=== PATIENT | female | born 1965 ===

== ENCOUNTER → 2016-10-19 | Outpatient (CLI) | payer OTHER ==
[~2016-10-19] VITALS: Ht 165.1 cm; Wt 95.3 kg
[~2016-10-19] MED LIST: AMLODIPINE BESYL5 MG ORAL; Bacitracin 50000 Units Vial ONE; Bupivacaine w/Epi 0.5% 30ml Vial INJ ONE; CATAPRES0.1 MG ORAL; Dexamethasone 20mg/5ml IVP ONE; GABAPENTIN300 MG ORAL; Lidocaine 1% Plain 30 ml INJ ONE; Morphine Sulfate 4mg/ml Inj IM PRN; Norco 10mg/325mg tab ORAL PRN; Surgicel 4in x 8in TOPIC ONE; TRAMADOL HCL50 MG ORAL; Thrombin 5000 units TOPIC ONE; Vancomycin 1gm inj IVPB ONE; ZOLPIDEM TARTRAT5 MG ORAL; Zolpidem 5mg tab ORAL PRN; ceFAZolin sod 1 GM in NS 55 ML IVPB ONE; oxyCODONE 5mg IR tab ORAL PRN; traMADol 50mg tab ORAL PRN
[2016-10-19 06:26] VITALS: BP 160/85
--- NOTE | 2016-10-19 06:34 | Anethesia Preoperative Eval ---
Anesthesia Pre-op PMH/ROS General Date of Evaluation: Oct 19, 2016 Anesthesiologist: Tiburcio ASA Score: ASA 2 Mallampati Score Class I : Soft palate, uvula, fauces, pillars visible Class II: Soft palate, uvula, fauces visible Class III: Soft palate, base of uvula visible Class IV: Only hard plate visible Mallampati Classification: Class III Surgeon: Tiburcio Family History: no anesthesia problems Allergies: Coded Allergies: No Known Allergies (Unverified , 10/18/16) Medications: see eMAR Past Medical History Cardiovascular: Reports: HTN Other: obesity - BMI 35 Anesthesia Pre-op Phys. Exam Physician Exam Last Vital Signs Date Time Temp Pulse Resp B/P Pulse Ox O2 Delivery O2 Flow Rate FiO2 10/19/16 06:26 97.7 67 20 160/85 97 Room Air Anesthesia Pre-op A/P Labs Urine Test Test 10/19/16 05:30 Urine HCG, Qualitative Negative Jorje Henry MD Oct 19, 2016 06:34
--- NOTE | 2016-10-19 08:38 | Consultation ---
DATE OF CONSULTATION: 10/19/2016 CONSULTING PHYSICIAN: Justin Delatorre M.D. REFERRING PHYSICIAN: Heri Dey M.D. REASON FOR CONSULTATION: Acute pain consult. HISTORY OF PRESENT ILLNESS: Dear Dr. Heri Dey, Thank you kindly for consulting me to evaluate and render an opinion as to how to proceed in the management of the patient's acute postoperative cervical spine pain after cervical spine fusion surgery with instrumentation. The patient is a morbidly obese 51-year-old woman, who injured her neck after an air-vent fell on her at a salon. The patient required cervical spine fusion surgery today and complained of significant postoperative discomfort. You consulted me for acute pain consultation. I saw the patient at bedside with her daughter, who interpreted Persian. I have discussed the case with the intraoperative anesthesiologist, Dr. Henry along with the medical and surgical team to optimize the patient's postoperative pain control. PAST MEDICAL HISTORY: 1. Acute postoperative cervical spine pain status post cervical spine fusion surgery with instrumentation by Dr. Heri Dey in September 2016. 2. Personal injury. 3. Obesity. 4. Hypertension. 5. Active tobacco usage. PAST SURGICAL HISTORY: section. MEDICATIONS: Medications at home tramadol, Neurontin 300 mg b.i.d., antihypertensive medications, Norvasc and clonidine, and Ambien 5 mg at bedtime. ALLERGIES: No known drug allergies. SOCIAL HISTORY: The patient actively smokes tobacco. I counseled the patient to stop smoking. The patient has several children at the bedside providing good social support and interpreting. The patient denies alcohol or marijuana usage. FAMILY HISTORY: Obesity, hypertension, and diabetes. REVIEW OF SYSTEMS: Per Dr. Howard. PHYSICAL EXAMINATION: GENERAL: Age 51, height 5 feet 3 inches, and weight 97 kilograms. VITAL SIGNS: In the medical record. HEENT: Head shows normocephalic and atraumatic. Pupils are equal, round, and reactive to light and accommodative. Extraocular muscles intact. NECK: Pain with range of motion of the neck. Detailed neurologic exam and neck exam per Dr. Dey. CHEST: Obese. Barrel chested. No wheezes, rales, rhonchi, or accessory muscle use noted. HEART: Regular rate and rhythm. Positive S4. Normal S1 and S2. No S3 appreciated. ABDOMEN: Obese. Positive bowel sounds. BREASTS AND GENITOURINARY: Deferred. DIAGNOSTIC TESTING: CT cervical spine dated 06/12/2016 shows C4-C5 with a 3 mm AP disk bulging with probable spinal canal stenosis. Echocardiogram on 06/25/2016, normal left ventricular function and ejection fraction 65%. A 12-lead EKG, normal sinus rhythm, nonspecific lateral ST changes on 09/27/2016, and ventricular rate 82. Preoperative chest x-ray showed no acute cardiopulmonary disease on 10/05/2016. LABORATORY STUDIES: On 10/02/2016, glucose 117, BUN 6, creatinine 0.5, sodium 142, potassium 3.7, chloride 102, bicarb 32, and calcium 9.4. Hemoglobin A1c 8.1. PTT 28. INR 1.0. Urinalysis is negative. White count 8, hematocrit 37, and platelets 200,000. IMPRESSION: 1. Acute postoperative cervical spine pain status post cervical spine fusion surgery with instrumentation by Dr. Heri Dey in September 2016. 2. Personal injury. 3. Obesity. 4. Hypertension. 5. Active tobacco usage. TREATMENT RECOMMENDATIONS: After a detailed examination of the patient and review of the medical record, I have devised the following analgesic plan to help her postoperatively. I have ordered Cepacol lozenges for topical sore throat complaints except for tiered regimen of analgesics starting with tramadol 50 mg orally every 8 hours p.r.n. for mild pain. I have then added Royal 10/325 one tablet orally every three hours p.r.n. for moderate pain and I have made available oxycodone instant release 5 mg orally every three hours as needed for severe pain. I have also added a breakthrough dose of morphine 4 mg intramuscularly every three hours as needed for 10/10 pain. I have added Soma 350 mg orally every eight hours as needed for muscle spasms. I did provide a prescription for 50 tablets of Royal for outpatient usage. The patient is a poor historian and cannot recall the names of medications, which have worked for her in the past. She did bring with her to the hospital bottle of tramadol and gabapentin. She does state that she does take the has gabapentin 300 mg once or twice per day. I will restart gabapentin 300 mg b.i.d. here in the hospital. The patient does have insomnia symptoms at-times. I have ordered Ambien 5 mg q.8 hours p.r.n. I will empirically place the patient on Protonix 40 mg nightly for GI ulcer prophylaxis on the p.r.n. dose with Mylanta 30 mL q.6 hours p.r.n. for any GERD symptom exacerbation. I have added Benadryl 20 mg orally to help with itching along with an antiemetic dose of Zofran 4 mg intravenously every four hours as needed for nausea and vomiting. I have added a p.r.n. rescue laxative Dulcolax suppository q.12 hours 10 mg p.r.n. With the patient's obesity, I have encouraged incentive spirometer be ordered to encourage good pulmonary toilet. The patient does smoke tobacco. She may benefit from nicotine patch if okayed by the surgeon, Dr. Dey. I will defer DVT prophylaxis to the surgical team. A comprehensive review of the medical record was performed. Records reviewed from multiple reports from today's date of surgery at [facility] including records from the surgery suite, Dr. Dey and surgical team, and intraoperative anesthesiologist, Dr. Henry. Also records were reviewed from the nursing and pharmacy team; along with multiple records from the preoperative, Dr. Howard with diagnostic testing. Justin Delatorre M.D. DR: DARIANA JOB#: [id number] CC:
== END | disposition home or self-care (01) ==
LOC: UNDOADMIN 05:14 → SDSOVERFLO 05:14 → LAB 10:00 → EDSTATUS 10:30
DX: Z01.812 Encounter for preprocedural laboratory examination (principal); M54.12 Radiculopathy, cervical region; I10 Essential (primary) hypertension; E66.9 Obesity, unspecified; I51.7 Cardiomegaly; K29.70 Gastritis, unspecified, without bleeding; Z72.0 Tobacco use; Z83.3 Family history of diabetes mellitus; Z82.49 Family history of ischemic heart disease and other diseases of the circulatory system; Z53.09 Procedure and treatment not carried out because of other contraindication
CPT/HCPCS: 36415; 81025; 82947; 82962; 86850; 86900; 86901; 87081; G0463; 99211

== ENCOUNTER 2017-02-27 08:20 | Inpatient (IN) | payer OTHER ==
[~2017-02-27] VITALS: Ht 160 cm; Wt 94.3 kg
[2017-02-27] VITALS (15 sets, daily range): BP systolic 148–177; BP diastolic 76–99
[2017-02-27] MEDS: Dexamethasone Inj PF*Surgery use* 10 MG/ML VIAL IV ONE (07:00)
[~2017-02-27 08:20] MED LIST changes: +Bupivacaine 0.5% Inj 30 ml vial INJ ONE; -Bupivacaine w/Epi 0.5% 30ml Vial INJ ONE; -Dexamethasone 20mg/5ml IVP ONE; -Morphine Sulfate 4mg/ml Inj IM PRN; -Norco 10mg/325mg tab ORAL PRN; -Zolpidem 5mg tab ORAL PRN; +ceFAZolin 1gm/50ml Premix 50 ML IV ONE; -ceFAZolin sod 1 GM in NS 55 ML IVPB ONE; -oxyCODONE 5mg IR tab ORAL PRN; -traMADol 50mg tab ORAL PRN
[2017-02-27] MEDS ORDERED: LR 1000ml 1,000 ML IVLG SCH (09:34)
[2017-02-27] MEDS ORDERED: DiphenhydrAMINE 50mg/ml Inj IVP PRN (09:45)
[2017-02-27] MEDS ORDERED: Norco 5mg/325mg tab ORAL PRN (09:45)
[2017-02-27] MEDS ORDERED: fentaNYL 100 mcg/2 mL IV PRN (09:45)
[2017-02-27] MEDS ORDERED: oxyCODONE HCL/Acetaminophen 5/325mg ORAL PRN (09:45)
[2017-02-27] MEDS ORDERED: Metoclopramide 10mg/2ml Inj IVP PRN ×2 (09:45→13:00)
[2017-02-27] MEDS ORDERED: LORazepam Inj 2mg/ml 1ml IV PRN (09:45)
[2017-02-27] MEDS ORDERED: Ketorolac 30mg Inj IV PRN (09:45)
[2017-02-27] MEDS ORDERED: Midazolam 2mg/2ml Inj IVP PRN (09:45)
[2017-02-27] MEDS ORDERED: Atropine Inj 1mg/10ml Syr IV PRN (09:45)
[2017-02-27] MEDS ORDERED: Ketorolac 60mg Inj IV PRN (09:45)
[2017-02-27] MEDS ORDERED: Meperidine 25mg/0.5ml Inj (FOR RIGORS ONLY) IV PRN (09:45)
[2017-02-27] MEDS ORDERED: Norco 7.5mg/325mg tab ORAL PRN (09:45)
[2017-02-27 10:08] LABS: BASOPHILS % (AUTO) 1.1 % (0.0-2.0); EOSINOPHILS % (AUTO) 3.6 % (0.0-3.0); LYMPHOCYTES % (AUTO) 37.4 % (20.0-45.0); MEAN CORPUSCULAR HEMOGLOBIN 26.8 PG (27.0-31.0); MEAN CORPUSCULAR VOLUME 86 FL (80-99); MEAN PLATELET VOLUME 5.7 FL (6.5-10.1); MONOCYTES % (AUTO) 7.1 % (1.0-10.0); NEUTROPHILS % (AUTO) 50.9 % (45.0-75.0); PLATELET COUNT 258 K/UL (150-450); RED BLOOD COUNT 4.95 M/UL (4.20-5.40); RED CELL DISTRIBUTION WIDTH 15.1 % (11.6-14.8); WHITE BLOOD COUNT 9.2 K/UL (4.8-10.8)
[2017-02-27 10:25] LABS: ANION GAP 14 (5-15); CALCIUM 9.3 mg/dL (8.6-10.2); CARBON DIOXIDE 27 mEQ/L (20-30); CHLORIDE 100 mEQ/L (98-107); CREATININE 0.5 mg/dL (0.5-0.9); GLOMERULAR FILTRATION RATE > 60 mL/min (>60); HEMOLYSIS 48; POTASSIUM 3.3 mEQ/L (3.4-4.9); SODIUM 141 mEQ/L (135-145)
[2017-02-27] MEDS ORDERED: LR 1000ml ONE (10:30)
[2017-02-27] MEDS ORDERED: fentaNYL 100 mcg/2 mL IV ONE (10:30)
[2017-02-27] MEDS ORDERED: NS Irrig 1000ml ONE (10:30)
[2017-02-27] MEDS ORDERED: Zemuron 50mg/5ml Inj IV ONE (10:30)
[2017-02-27] MEDS ORDERED: Glycopyrrolate 0.2mg/ml 1ml Vial ONE (10:30)
[2017-02-27] MEDS ORDERED: Propofol 10mg/ml 100ml btl IV ONE (10:30)
[2017-02-27] MEDS ORDERED: Neostigmine 1mg/ml 10ml Inj ONE (10:30)
[2017-02-27] MEDS ORDERED: Sterile Water Irrig 1000ml IRRIG ONE (10:30)
[2017-02-27] MEDS ORDERED: fentaNYL 250mcg/5ml ONE (10:30)
[2017-02-27] MEDS ORDERED: Lidocaine 1% MPF 10mg/ml 5ml ONE (10:30)
[2017-02-27] MEDS ORDERED: Acetaminophen (Non formulary) 1,000 MG/100 ML ML IV ONE (10:30)
[2017-02-27 10:39] LABS: PROTHROMBIN TIME 10.6 SEC (9.30-11.50)
--- NOTE | 2017-02-27 11:18 | Anethesia Preoperative Eval ---
Anesthesia Pre-op PMH/ROS General Date of Evaluation: Feb 27, 2017 Time of Evaluation: 10:34 Anesthesiologist: Elaine ASA Score: ASA 3 Mallampati Score Class I : Soft palate, uvula, fauces, pillars visible Class II: Soft palate, uvula, fauces visible Class III: Soft palate, base of uvula visible Class IV: Only hard plate visible Mallampati Classification: Class III Surgeon: Tiburcio Diagnosis: Neck Pain Surgical Procedure: ACDF C6-7 Anesthesia History: none Family History: no anesthesia problems Allergies: Coded Allergies: No Known Allergies (Unverified , 10/18/16) Medications: see eMAR Past Medical History Cardiovascular: Reports: HTN Endocrine: Reports: DM - FBS 99 Other: obesity Anesthesia Pre-op Phys. Exam Physician Exam Last Vital Signs Date Time Temp Pulse Resp B/P Pulse Ox O2 Delivery O2 Flow Rate FiO2 02/27/17 09:20 155/76 02/27/17 09:10 98.5 66 18 94 Room Air Constitutional: NAD Neurologic: CN 2-12 intact Cardiovascular: RRR Respiratory: CTA Gastrointestinal: S/NT/ND Airway Exam Mallampati Score: Class III MO: full ROM: limited Teeth: intact Anesthesia Pre-op A/P Labs Hematology Test 02/27/17 09:50 White Blood Count 9.2 K/UL (4.8-10.8) Red Blood Count 4.95 M/UL (4.20-5.40) Hemoglobin 13.3 G/DL (12.0-16.0) Hematocrit 42.7 % (37.0-47.0) Mean Corpuscular Volume 86 FL (80-99) Mean Corpuscular Hemoglobin 26.8 PG (27.0-31.0) L Mean Corpuscular Hemoglobin Concent 31.0 G/DL (32.0-36.0) L Red Cell Distribution Width 15.1 % (11.6-14.8) H Platelet Count 258 K/UL (150-450) Mean Platelet Volume 5.7 FL (6.5-10.1) L Neutrophils (%) (Auto) 50.9 % (45.0-75.0) Lymphocytes (%) (Auto) 37.4 % (20.0-45.0) Monocytes (%) (Auto) 7.1 % (1.0-10.0) Eosinophils (%) (Auto) 3.6 % (0.0-3.0) H Basophils (%) (Auto) 1.1 % (0.0-2.0) Coagulation Test 02/27/17 10:25 Prothrombin Time 10.6 SEC (9.30-11.50) Prothromb Time International Ratio 1.0 (0.9-1.1) Activated Partial Thromboplast Time 30 SEC (23-33) Chemistry Test 02/27/17 09:50 Sodium Level 141 mEQ/L (135-145) Potassium Level 3.3 mEQ/L (3.4-4.9) L Chloride Level 100 mEQ/L (98-107) Carbon Dioxide Level 27 mEQ/L (20-30) Anion Gap 14 (5-15) Blood Urea Nitrogen 7 mg/dL (7-23) Creatinine 0.5 mg/dL (0.5-0.9) Estimat Glomerular Filtration Rate > 60 mL/min (>60) Glucose Level 106 mg/dL (74-106) Calcium Level 9.3 mg/dL (8.6-10.2) Urine Test Test 02/27/17 08:40 Urine HCG, Qualitative Negative Risk Assessment & Plan Assessment: ASA 3 Plan: GA, BIS, Glidescope Status Change Before Surgery: No Pre-Antibiotics Dru Grams Ancef IV Given Within 1 Hr of Incision: Yes Time Given: 10:52 Jorje Henry MD Feb 27, 2017 11:18
--- NOTE | 2017-02-27 11:53 | Immediate Post-Op Evaluation ---
Immediate Post-Op Evalulation Immediate Post-Op Evalulation Procedure: ACDF C6-7 Date of Evaluation: Feb 27, 2017 Time of Evaluation: 13:39 IV Fluids: 900 LR Blood Products: 0 Estimated Blood Loss: 50 Urinary Output: 0 Blood Pressure Systolic: 181 Blood Pressure Diastolic: 91 Pulse Rate: 69 Respiratory Rate: 16 O2 Sat by Pulse Oximetry: 100 Temperature (Fahrenheit): 98 Pain Score (1-10): 3 Nausea: No Vomiting: No Complications 0 Patient Status: awake, reacts, patent, extubated, none Hydration Status: adequate Dru Grams Ancef IV Given Within 1 Hr of Incision: Yes Time Given: 10:52 Jorje Henry MD Feb 27, 2017 11:53
--- NOTE | 2017-02-27 11:54 | 48 Hour Post Anesthesia Eval ---
Post Anesthesia Evaluation Procedure: ACDF C6-7 Date of Evaluation: Feb 27, 2017 Time of Evaluation: 15:43 Blood Pressure Systolic: 178 0: 89 Pulse Rate: 67 Respiratory Rate: 18 Temperature (Fahrenheit): 98.4 O2 Sat by Pulse Oximetry: 96 Airway: patent Nausea: No Vomiting: No Pain Intensity: 3 Hydration Status: adequate Cardiopulmonary Status: Stable Mental Status/LOC: patient returned to baseline Follow-up Care/Observations: 0 Post-Anesthesia Complications: 0 Follow-up care needed: N/A Jorje Henry MD Feb 27, 2017 11:54
--- NOTE | 2017-02-27 12:57 | Pre-Procedure Note/Attestation ---
Pre-Procedure Note/Attestation Complete Prior to Procedure Planned Procedure: not applicable Procedure Narrative: Hemivertebrectomy C6, C7 Interbody reconstruction / fusion C6-C7 Anterior plate fixation C6, C7 Body Habitus Xray SSEP Microscope Attestation I attest that I discussed the nature of the procedure; its benefits; risks and complications; and alternatives (and the risks and benefits of such alternatives ), prior to the procedure, with the patient (or the patient's legal textile machinery sales representative). I attest that, if there was a reasonable possibility of needing a blood transfusion, the patient (or the patient's legal textile machinery sales representative) was given the [facility] standardized written summary, pursuant to the Sarwat Ruthy Blood Safety Act ([place] Health and Safety Code # 1645, as amended). I attest that I re-evaluated the patient just prior to the surgery and that there has been no change in the patient's H&P, except as documented below: MICHELLE JOSEPH Feb 27, 2017 12:57
[2017-02-27] MEDS ORDERED: HYDROmorphone 1mg/ml Carpuject SUBQ PRN (13:00)
[2017-02-27] MEDS ORDERED: D5 1/2NS 1,000 ML IV SCH (13:00)
--- NOTE | 2017-02-27 13:00 | Brief Operative Note ---
Immediate Post Operative Note Operative Note Pre-op Diagnosis: Post trauma HNP Procedure: Hemivertebrectomy C6 Hemivertebrectomy C7 SSEP Microscope C6-7 Interbody Device Fusion C6-C7 Plate Anterior C6-C7 Xray Post-op Diagnosis: same as pre-op Findings: consistent w/pre-op dx studies Surgeon: Tiburcio Engineer Systems: Juan Carlos Anesthesiologist: Elaine Anesthesia: general Specimen: none Complications: none Condition: stable Estimated Blood Loss: minimal Implant(s) used?: Yes MICHELLE JOSEPH Feb 27, 2017 13:00
[2017-02-27] MEDS: Hydromorphone 0.5mg/0.5ml inj IVP PRN ×2 (13:49→14:07)
[2017-02-27] MEDS ORDERED: Norco 10mg/325mg tab ORAL PRN (16:00)
[2017-02-27] MEDS ORDERED: Chloraseptic Spray 20mL Bottle ORAL PRN (16:15)
[2017-02-27] MEDS ORDERED: Morphine Sulfate 4mg/ml Inj IM PRN (16:15)
[2017-02-27] MEDS ORDERED: Zolpidem 5mg tab ORAL PRN (16:15)
--- NOTE | 2017-02-27 16:20 | Diagnostic Imaging Report ---
Indication: PAIN, intraoperative Technique: Intraoperative images Comparison: None Findings: Intraoperative images document localizer tool at the level of C6-7 disc. Subsequent images document anterior fusion with placement of a disc spacer at what appears to be the same level. Impression: Intraoperative imaging, as described
[2017-02-27] MEDS ORDERED: Norco 10mg/325mg tab ORAL ONE (16:30)
[2017-02-27] MEDS ORDERED: Chloraseptic Spray 20mL Bottle ORAL ONE (17:00)
[2017-02-27] MEDS ORDERED: ceFAZolin sod 1 GM in D5W 55 ML IV SCH (18:00)
[2017-02-27] MEDS ORDERED: Docusate 100mg/10ml Liq NG SCH (18:00)
[2017-02-27] MEDS ORDERED: metFORMIN 500mg tab ORAL SCH (18:00)
--- NOTE | 2017-02-27 18:26 | Cardiology Progress Note ---
Assessment/Plan Assessment/Plan [id number] Objective Last 24 Hour Vital Signs Date Time Temp Pulse Resp B/P Pulse Ox O2 Delivery O2 Flow Rate FiO2 02/27/17 18:00 97.0 69 19 150/83 97 Room Air 02/27/17 17:24 155/76 02/27/17 17:15 97.9 68 19 155/76 97 Room Air 02/27/17 16:15 96.8 68 19 154/84 95 Room Air 02/27/17 15:10 97.9 71 14 148/76 100 Nasal Cannula 3.0 02/27/17 14:55 65 16 154/82 100 Nasal Cannula 3.0 02/27/17 14:40 64 18 159/82 100 Nasal Cannula 3.0 02/27/17 14:37 97.7 02/27/17 14:37 97.7 02/27/17 14:25 65 16 172/88 100 Nasal Cannula 3.0 02/27/17 14:20 160/90 02/27/17 14:15 62 17 167/86 99 Nasal Cannula 3.0 02/27/17 14:10 97.7 02/27/17 14:03 61 16 166/86 99 Nasal Cannula 3.0 02/27/17 13:48 62 14 164/85 99 Nasal Cannula 3.0 02/27/17 13:38 63 13 171/92 100 Simple Mask 6.0 02/27/17 13:33 63 18 175/95 100 Simple Mask 6.0 02/27/17 13:28 97.7 70 32 177/99 100 Simple Mask 6.0 02/27/17 13:28 67 18 96 02/27/17 13:27 69 16 100 02/27/17 09:20 155/76 02/27/17 09:10 98.5 66 18 158/91 94 Room Air Laboratory Tests Test 02/27/17 08:40 02/27/17 09:50 02/27/17 10:25 Urine HCG, Qualitative Negative White Blood Count 9.2 K/UL (4.8-10.8) Red Blood Count 4.95 M/UL (4.20-5.40) Hemoglobin 13.3 G/DL (12.0-16.0) Hematocrit 42.7 % (37.0-47.0) Mean Corpuscular Volume 86 FL (80-99) Mean Corpuscular Hemoglobin 26.8 PG (27.0-31.0) L Mean Corpuscular Hemoglobin Concent 31.0 G/DL (32.0-36.0) L Red Cell Distribution Width 15.1 % (11.6-14.8) H Platelet Count 258 K/UL (150-450) Mean Platelet Volume 5.7 FL (6.5-10.1) L Neutrophils (%) (Auto) 50.9 % (45.0-75.0) Lymphocytes (%) (Auto) 37.4 % (20.0-45.0) Monocytes (%) (Auto) 7.1 % (1.0-10.0) Eosinophils (%) (Auto) 3.6 % (0.0-3.0) H Basophils (%) (Auto) 1.1 % (0.0-2.0) Sodium Level 141 mEQ/L (135-145) Potassium Level 3.3 mEQ/L (3.4-4.9) L Chloride Level 100 mEQ/L (98-107) Carbon Dioxide Level 27 mEQ/L (20-30) Anion Gap 14 (5-15) Blood Urea Nitrogen 7 mg/dL (7-23) Creatinine 0.5 mg/dL (0.5-0.9) Estimat Glomerular Filtration Rate > 60 mL/min (>60) Glucose Level 106 mg/dL (74-106) Calcium Level 9.3 mg/dL (8.6-10.2) Prothrombin Time 10.6 SEC (9.30-11.50) Prothromb Time International Ratio 1.0 (0.9-1.1) Activated Partial Thromboplast Time 30 SEC (23-33) OLEG WHARTON Feb 27, 2017 18:26
[2017-02-27] MEDS ORDERED: NORCO 10-325 T1 EACH ORAL (18:44)
--- NOTE | 2017-02-27 18:45 | Operative Note - Dictated ---
DATE OF OPERATION: 02/27/2017 SURGEON: Heri Dey M.D. ADMITTING/PREOPERATIVE DIAGNOSIS: Posttraumatic cervical herniated nucleus pulposus/radiculopathy. POSTOPERATIVE DIAGNOSIS: Posttraumatic cervical herniated nucleus pulposus/radiculopathy. OPERATIVE PROCEDURE: The patient's body habitus greater than ninety-fifth percent for her height. Reynaldo vertebrectomy inferior C6 and superior C7. Interbody reconstruction fusion PEEK graft with osteopromotive material. Lordotic with correction deformity. Anterior internal plate fixation, C6-C7. SSEP monitoring high-power microscopic dissection. Intraoperative fluoroscopy interpreted by Surgeon. BAIL BONDING AGENT: SALAS Medrano. ANESTHESIA: General with intubation with Dr. Henry. ESTIMATED BLOOD LOSS: Minimal. COMPLICATIONS: None. POSTOPERATIVE CONDITION: Good/stable. INTRAOPERATIVE OBSERVATION: Decreased bone density. PROCEDURE: The patient was brought to the operating room and in the supine position general anesthesia with intubation was induced. IV antibiotics were administered 30 minutes prior to incision time. Cross-table image was obtained with markers in place demonstrating correct level for incision placement. Incision was marked with sterile pen. Left lateral overlying the C6-C7 interval. Anterior cervical spine was sterilely prepped and draped free in usual sterile fashion. Utilizing a longitudinal incision, left at the appropriate intervals sharp dissection was carried through dermis and epidermis. Due the patient's body habitus, increased size of incision was necessary for access. Electrocautery dissection was carried through subcutaneous tissue to the level of the platysmas muscle was identified, isolated and transected in line with the incision. Dissection was carried medial to the sternocleidomastoid muscle, carotid sheath through the deep cervical and pretracheal fascia to the midline between the right and left longus colli muscles. Subperiosteal elevation was undertaken of the longus coli muscles. Large anterior osteophyte at C6-C7 noted. Retractors were placed. Spinal needle was placed into the disc space at presumed C6-C7 with needle bent at 90 degrees, so as to avoid penetration greater than 3 millimeters in the disc space. Cross-table image was obtained under sterile conditions demonstrating the correct level for further dissection. Level was marked. Needle removed. Anterior osteophyte was resected with [place] bur dissection under high-power magnification. Cephalad, caudad, vertebral body pins were placed with distraction. Reynaldo vertebrectomy of inferior C6 and superior C7 to the posterior longitudinal ligament decompression. No dural tears or leaks noted anytime during the procedure. SSEP monitoring stable. Interpositional grafting with a lordotic PEEK graft containing osteopromotive material, so was implanted under high-power magnification, SSEP monitoring. Correction to lordosis. Traction pins removed. Bone cauterized by application of sterile wax. All head traction removed (10 pounds). Anterior internal plate fixation compressive fashion was undertaken. Retrieval screw utilization with poor bone density cephalad left screw. Screw purchase interpositional grafting of the appropriate sized lordotic PEEK cage containing osteopromotive material placed under high-power magnification. SSEP monitoring stable. Pins removed. Bone cauterized by application of sterile wax. Anterior internal fixation undertaken C6-C7 with plate/screws. Decrease in bone density noted. Wound copiously irrigated with antibiotic-containing saline. FloSeal applied. A 0.5 g vancomycin powder applied. Reapproximation of the platysmas muscle. Reapproximation of dermis and epidermis. Surgical strips applied followed with sterile bandage maintained in place with tape. The patient awakened, extubated in the operating room and transported to postoperative recovery in good stable condition. Heri Dey M.D. DR: GENTRY JOB#: [id number] CC:
[2017-02-27] MEDS ORDERED: Tubing IV Secondary IV ONE (19:04)
[2017-02-27] MEDS ORDERED: 1/2 NS 1000ml IV ONE (19:04)
--- NOTE | 2017-02-28 01:01 | Consultation ---
DATE OF CONSULTATION: 02/27/2017 CARDIOLOGY CONSULTATION CONSULTING PHYSICIAN: Venkat Howard M.D. REFERRING PHYSICIAN: Heri Dey M.D. REASON FOR REFERRAL: Postoperative diabetic and medical care. HISTORY OF PRESENT ILLNESS: This is a 51-year-old female with history of multiple medical problems as delineated below. The patient has had history of high blood pressure and very noncompliance with medication. Over the course of the past few weeks, I have started her on some medications and gradually, I have increased the medication to control both her blood pressure and heart rate. She has done well. Eventually, however, the blood pressure was not optimally controlled and recommendation was given for the patient to have blood pressure checked at home and the result of her blood pressure readings unfortunately had never occurred. Nevertheless, she has done well. She came in. She eventually had her procedure done today and she has done well. Postoperatively, she did receive one dose of hydralazine and she is back on her diet. Her Glucophage and her usual diabetic medication I have restarted again this afternoon. The patient denies any chest pain. No shortness of breath. No dizziness or lightheadedness. No palpitation. She does have some pain in her neck. PAST MEDICAL HISTORY: Positive for history of cervical and some lumbar spine problems. She has a history of left ventricular hypertrophy, diastolic dysfunction, diabetes mellitus, essential hypertension, and obesity. She has recently had acute course of bronchitis. ALLERGIES: She has no known drug allergies. SOCIAL HISTORY: She does not smoke or drink alcoholic beverages. No drug use. REVIEW OF SYSTEMS: Gastrointestinal: She denies any nausea or vomiting. She is actually eating dinner. Genitourinary: Denies any discomfort on urination. Pulmonary: Denies any cough or wheezing. Constitutional: No fevers, chills, or night sweats. PHYSICAL EXAMINATION: GENERAL: An obese female, in no respiratory distress. She is actually eating dinner. VITAL SIGNS: Her blood pressure is anywhere between 148/76 and 150/83, temperature is 97 degrees, respirations of 19, and heart rate is 69. NECK: Has a dressing on the left side of her neck. LUNGS: Appear to be clear to auscultation and percussion. CARDIAC: S1 is normal. S2 is normal. Regular rate and rhythm. No heaves, thrills, gallops, or rubs noted. ABDOMEN: Soft and nontender. Positive bowel sounds. EXTREMITIES: There is no clubbing, cyanosis, or edema. She has pneumatic compression stockings in place. LABORATORY VALUES: White count of 9.2 with hemoglobin 13.3 and platelets 258,000. Sodium 145, potassium 3.3, chloride 100, bicarbonate 27, BUN of 7, creatinine 0.5, and glucose of 106. Coags have been normal, and urine test was negative. ASSESSMENT AND PLAN: 1. Hypertension. 2. Diabetes mellitus. 3. Left ventricular hypertrophy. 4. Diastolic dysfunction. This patient was seen in cardiac consultation. The patient's blood pressure has been controlled with a course of medication that she has been provided. Those will be continued. She has adjusted diet and generally will be resumed again tomorrow morning. Her Glucophage has already resumed and importance of diet for blood sugar as well as her blood pressure including calorie restriction as well as salt intake were fully discussed with the patient. Importance discussed. She should proceed with activity as tolerated as instructed by Dr. Dey. Follow up has been arranged for the patient with Dr. Dey as well. She will be continued with amlodipine 5 mg twice a day, clonidine 0.1 mg 3 times a day, hydrochlorothiazide 25 mg once a day, gabapentin 300 mg twice a day, metformin 1000 mg twice daily, Januvia 25 mg daily, and tramadol as needed. Venkat Howard M.D. DR: Nannette JOB#: [id number] CC:
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
[2017-02-28] MEDS ORDERED: sitaGLIPtin 25mg tab ORAL SCH (06:30)
[2017-02-28] MEDS ORDERED: D5 1/2NS 1,000 ML IV SCH (13:00)
--- NOTE | 2017-03-01 07:00 | Discharge Summary 2 SIG ---
DATE OF ADMISSION: 02/27/2017 DATE OF DISCHARGE: 02/27/2017 CONSULTANTS: 1. Justin Delatorre M.D. 2. Venkat Howard M.D. 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 She was admitted on 02/27/2017 and underwent cervical spine surgery. She underwent benjamin vertebrectomy on inferior C6 and superior C7, interbody reconstruction, fusion PEEK graft with osteopromotive material and lordotic with correction deformity; anterior internal plate fixation C6-C7; with SSEP monitoring, high-power microscopic dissection, and intraoperative fluoroscopy. She tolerated the procedure well and postoperatively was seen by Dr. Delatorre for pain management. She was also seen by Dr. Howard for postoperative diabetic and medical care. Glucophage and her usual diabetic medications were restarted. Blood pressure was controlled. Diet was resumed. She was seen by physical therapy and was ambulating and voiding well. Vitals had been stable. The patient was eventually discharged home to follow up as an outpatient. FINAL DIAGNOSES: Posttraumatic herniated nucleus pulposus, status post benjamin vertebrectomy on C6 and C7; interbody reconstruction with osteopromotive material; lordotic correction deformity; anterior internal plate fixation on C6-C7. Heri Dey M.D. I have been assigned to dictate discharge summary on this account and I was not involved in the patient's management. Paradise Puente N.P. DR: MORIS JOB#: [id number] CC: ROSALINDA
== END 2017-02-27 19:05 | disposition home or self-care (01) | DRG 473 ==
LOC: SDSOVERFLO 08:20 → 3E 15:45
PROC: 0RG10A0 Fusion of Cervical Vertebral Joint with Interbody Fusion Device, Anterior Approach, Anterior Column, Open Approach (ICD-10-PCS; principal; 2017-02-27 11:00)
DX: M50.123 Cervical disc disorder at C6-C7 level with radiculopathy (principal); I10 Essential (primary) hypertension; E66.9 Obesity, unspecified; I51.7 Cardiomegaly; Z72.0 Tobacco use; Z68.36 Body mass index [BMI] 36.0-36.9, adult
CPT/HCPCS: 36415; 72040; 76001; 80048; 81025; 82962; 85025; 85610; 85730; 86850; 86900; 86901; 87081; 93005; J2180; J2250; J2405; J2710